=== PATIENT | male | born 2000 | race Caucasian/White ===

== ENCOUNTER 2019-08-26 14:36 | Emergency (ER) | payer SELFPAY ==
[~2019-08-26] VITALS: Ht 170.2 cm; Wt 61.4 kg
[2019-08-26 14:46] VITALS: TEMP 98.1
[2019-08-26] MEDS ORDERED: ZOLOFT 25MG25 MG PO (14:51)
[2019-08-26 15:02] LABS: COLLECTION METHOD CLEAN CATCH
[2019-08-26 15:12] LABS: MUCOUS Present /lpf; PH 6 (5-8); SQUAMOUS EPITHELIAL 0-2 /hpf; URINE APPEARANCE Hazy; URINE BACTERIA Rare /hpf; URINE BILIRUBIN Negative (NEGATIVE); URINE BLOOD 3+ (NEGATIVE); URINE COLOR Yellow; URINE GLUCOSE Negative (NEGATIVE); URINE KETONE Negative (NEGATIVE); URINE LEUKOCYTE ESTERASE Negative (NEGATIVE); URINE NITRATE Negative (NEGATIVE); URINE PROTEIN(semi-quant) 1+ (NEGATIVE); URINE RBC >50 /hpf; URINE UROBILINOGEN Negative (NEGATIVE)
[2019-08-26 16:02] LABS: ALBUMIN 4.7 gm/dL (3.5-5.0); BILIRUBIN,TOTAL 0.5 mg/dL (0.0-1.0); C-REACTIVE PROTEIN 1.1 mg/dL (0.0-0.9); CALCIUM 9.4 mg/dL (8.4-10.2); CREATININE, serum 1.04 (0.66-1.25); POTASSIUM 3.7 mmol/L (3.4-5.0); TOTAL PROTEIN 7.9 gm/dL (6.4-8.2)
[2019-08-26 16:06] LABS: BASO % 0.2 % (0.0-2.0); EOS # 0.1 (0.0-0.7); EOS % 0.9 % (0-4.0); GRAN # 7.3 (1.4-6.5); GRAN % 78.7 % (42.2-75.2); HEMATOCRIT 43.8 % (36.0-47.0); HEMOGLOBIN 15.1 g/dl (12.5-16.1); LYMPH # 1.3 (1.2-3.4); LYMPH % 14.3 % (20.0-51.0); MEAN CELL VOLUME 87 fl (80.0-95.0); MEAN CORPUSCULAR HEMOGLOBIN 30 pg (26.0-32.0); MEAN CORPUSCULAR HGB CONC 35 g/dl (33.0-37.0); MEAN PLATELET VOLUME 11.3 fl (7.4-10.4); MONO # 0.5 (0.1-0.6); MONO % 5.7 % (1.7-9.3); PLATELET COUNT 160 K/mm3 (130-400); RED BLOOD COUNT 5.01 M/mm3 (4.20-5.60)
[2019-08-26] MEDS ORDERED: NORCO 325 MG-51 TAB PO (18:13)
[2019-08-26] MEDS ORDERED: ZOFRAN ODT4 MG PO (18:13)
[2019-08-26] MEDS ORDERED: CEFTIN500 MG PO (18:16)
[2019-08-26 18:30] VITALS: BP 134/90; PULSE 97
== END 2019-08-26 18:45 | disposition home or self-care (01) ==
LOC: COL.ER 14:36
PROVIDERS: Emergency Medicine
DX: N20.1 Calculus of ureter (principal); N39.0 Urinary tract infection, site not specified; F41.9 Anxiety disorder, unspecified; Z90.89 Acquired absence of other organs
CPT/HCPCS: A4216; J0696; J1885; J7030; Q9967

== ENCOUNTER 2021-03-27 15:12 | Emergency (ER) | payer SELFPAY ==
[~2021-03-27] VITALS: Ht 170.2 cm; Wt 81.8 kg
[~2021-03-27 15:12] MED LIST: CEFTIN500 MG PO; NORCO 325 MG-51 TAB PO; ZOFRAN ODT4 MG PO; ZOLOFT 25MG25 MG PO
[2021-03-27 15:25] VITALS: TEMP 98.4
[2021-03-27 15:55] LABS: ALBUMIN 5.1 gm/dL (3.5-5.0); BILIRUBIN,TOTAL 0.8 mg/dL (0.0-1.0); CALCIUM 9.5 mg/dL (8.4-10.2); CREATININE, serum 1.38 (0.66-1.25); POTASSIUM 3.4 mmol/L (3.4-5.0); TOTAL PROTEIN 8.4 gm/dL (6.4-8.2)
[2021-03-27 15:57] LABS: BASO % 0.4 % (0.0-2.0); EOS % 0.4 % (0-4.0); GRAN # 5.7 (1.4-6.5); GRAN % 70.2 % (42.2-75.2); HEMATOCRIT 42.4 % (42.0-52.0); HEMOGLOBIN 14.7 g/dl (13.5-18.0); LYMPH # 1.9 (1.2-3.4); LYMPH % 23.1 % (20.0-51.0); MEAN CELL VOLUME 86 fl (80.0-100.0); MEAN CORPUSCULAR HEMOGLOBIN 30 pg (27.0-31.0); MEAN CORPUSCULAR HGB CONC 35 g/dl (33.0-37.0); MEAN PLATELET VOLUME 11.7 fl (7.4-10.4); MONO # 0.5 (0.1-0.6); MONO % 5.8 % (1.7-9.3); PLATELET COUNT 196 K/mm3 (130-400); RED BLOOD COUNT 4.91 M/mm3 (4.20-5.60); REDCELL DISTRIBUTION WIDTH-CV 13.2 % (11.5-14.5)
[2021-03-27 17:31] LABS: COLLECTION METHOD CLEAN CATCH
[2021-03-27 18:01] LABS: MUCOUS Present /lpf; PH 6 (5-8); SQUAMOUS EPITHELIAL 0-2 /hpf; URINE APPEARANCE Clear; URINE BACTERIA None Seen /hpf; URINE BILIRUBIN Negative (NEGATIVE); URINE BLOOD 2+ (NEGATIVE); URINE CALCIUM OXALATE CRYSTAL Present /hpf; URINE COLOR Yellow; URINE GLUCOSE Negative (NEGATIVE); URINE KETONE 1+ (NEGATIVE); URINE LEUKOCYTE ESTERASE Negative (NEGATIVE); URINE NITRATE Negative (NEGATIVE); URINE PROTEIN(semi-quant) 1+ (NEGATIVE); URINE RBC 20-50 /hpf; URINE UROBILINOGEN Negative (NEGATIVE)
[2021-03-27] MEDS ORDERED: PROMETHAZINE12.5 M5 PO (18:27)
[2021-03-27 19:06] VITALS: BP 142/78; PULSE 95
== END 2021-03-27 19:06 | disposition home or self-care (01) ==
LOC: COL.ER 15:12
PROVIDERS: Physician Assistant
DX: N17.9 Acute kidney failure, unspecified (principal); N20.0 Calculus of kidney; E86.0 Dehydration; R94.4 Abnormal results of kidney function studies; F41.9 Anxiety disorder, unspecified; Z90.49 Acquired absence of other specified parts of digestive tract; Z79.899 Other long term (current) drug therapy
CPT/HCPCS: J1885; J7030; Q9967

== ENCOUNTER 2021-06-14 23:20 | Emergency (ER) | payer SELFPAY ==
[~2021-06-14 23:20] MED LIST changes: +PROMETHAZINE12.5 M5 PO
[2021-06-14 23:32] VITALS: BP 147/102; PULSE 107; TEMP 99.2
[2021-06-14] MEDS ORDERED: ATARAX 25MG25 MG/TAB (23:35)
[2021-06-15] MEDS ORDERED: DOXYCYCLINE 10100 MG PO (00:47)
== END 2021-06-15 01:03 | disposition home or self-care (01) ==
LOC: COL.ER 23:20
DX: J32.9 Chronic sinusitis, unspecified (principal); F41.9 Anxiety disorder, unspecified; Z20.822 Contact with and (suspected) exposure to COVID-19; Z79.899 Other long term (current) drug therapy

== ENCOUNTER 2022-09-01 10:33 | Emergency (ER) | payer SELFPAY ==
[~2022-09-01] VITALS: Ht 170.2 cm; Wt 81.8 kg
[~2022-09-01 10:33] MED LIST changes: +ATARAX 25MG25 MG/TAB; +CEPHALEXIN500 M1 PO; +DOXYCYCLINE 10100 MG PO
[2022-09-01 10:36] VITALS: TEMP 97
[2022-09-01 11:24] LABS: COLLECTION METHOD CLEAN CATCH
[2022-09-01] MEDS ORDERED: FLOMAX 0.40.4 MG/CAP PO (11:29)
[2022-09-01] MEDS ORDERED: CONCERTA18 MG PO (11:30)
[2022-09-01] MEDS ORDERED: MOBIC15 MG PO (11:30)
[2022-09-01 11:33] LABS: MUCOUS Present (NOT PRESENT); PH 5.5 (5.0-8.5); SQUAMOUS EPITHELIAL 0-2 /hpf (0-10); URINE APPEARANCE Clear (CLEAR/HAZY); URINE BACTERIA None Seen /hpf (NONE SEEN); URINE BLOOD 3+ (NEGATIVE); URINE CALCIUM OXALATE CRYSTAL Present (NOT PRESENT); URINE COLOR Yellow (YELLOW); URINE GLUCOSE Negative (NEGATIVE); URINE KETONE Negative (NEGATIVE); URINE NITRATE Negative (NEGATIVE); URINE PROTEIN(semi-quant) 2+ (NEGATIVE); URINE RBC >50 /hpf (0-2); URINE UROBILINOGEN 0.2 E.U/dL (0.2-1.0)
[2022-09-01 12:08] LABS: BASO % 0.5 % (0.0-2.0); EOS # 0.1 K/mm3 (0.0-0.7); EOS % 2.1 % (0.0-4.0); GRAN # 2.6 K/mm3 (1.4-6.5); GRAN % 62.7 % (42.2-75.2); HEMATOCRIT 37.9 % (42.0-52.0); HEMOGLOBIN 13.2 g/dl (13.5-18.0); LYMPH # 1.2 K/mm3 (1.2-3.4); LYMPH % 28.1 % (20.0-51.0); MEAN CELL VOLUME 85 fl (80.0-100.0); MEAN CORPUSCULAR HEMOGLOBIN 30 pg (27-31); MEAN CORPUSCULAR HGB CONC 35 g/dl (33.0-37.0); MONO # 0.3 K/mm3 (0.1-0.6); MONO % 6.4 % (1.7-9.3); PLATELET COUNT 154 K/mm3 (130-400); RED BLOOD COUNT 4.47 M/mm3 (4.20-5.60); REDCELL DISTRIBUTION WIDTH-CV 13.4 % (11.5-14.5)
[2022-09-01 12:24] LABS: ALBUMIN 3.7 gm/dL (3.5-5.0); BILIRUBIN,TOTAL 0.3 mg/dL (0.2-1.2); CALCIUM 8.2 mg/dL (8.4-10.2); CREATININE, serum 0.91 mg/dL (0.72-1.25); POTASSIUM 3.9 mmol/L (3.5-4.5); TOTAL PROTEIN 6.1 gm/dL (6.2-8.1)
[2022-09-01] MEDS ORDERED: NORCO 325 MG-51 TAB PO (12:53)
[2022-09-01] MEDS ORDERED: CIPRO 500MG TA500 MG PO (13:01)
[2022-09-01 13:15] VITALS: BP 129/88; PULSE 81
== END 2022-09-01 13:18 | disposition home or self-care (01) ==
LOC: COL.ER 10:33
PROVIDERS: Nurse Practitioner
DX: N20.1 Calculus of ureter (principal); Z88.1 Allergy status to other antibiotic agents; Z90.49 Acquired absence of other specified parts of digestive tract
CPT/HCPCS: J1885; J7030